=== PATIENT | female | born 2000 | race Caucasian/White ===

== ENCOUNTER 2019-07-14 13:12 | Emergency (ER) | payer OTHER ==
[2019-07-14] MEDS: ONDANSETRON (ODT) 4 MG TAB ODT (15:49)
== END 2019-07-14 16:48 | disposition home or self-care (01) ==
LOC: FTE 16:48
DX: O21.0 Mild hyperemesis gravidarum (principal); Z3A.18 18 weeks gestation of pregnancy
CPT/HCPCS: 80053; 81001; 81003; 85025; 85610; 85730; 99283